=== PATIENT | female | born 1975 | race Two or more races ===

== ENCOUNTER → 2017-01-28 | Day surgery (SDC) | payer SELFPAY ==
--- NOTE | ~2017-01-28 | OR ---
Unit #: [id number] #: [id number] Patient: MANGO BRITO [id number] [facility] [address] [facility]. [place], [place] [address] [id number] MR#: [id number] NAME: MANGO BRITO ROOM: Date of Procedure: 01/28/2017 Admission Date: 01/28/2017 Surgeon: Chang Giron M.D. : 1975 Attending Physician: Chang Giron M.D. Primary Care Physician: Primary Care Physician No OPERATIVE REPORT PREOPERATIVE DIAGNOSIS A 4 cm lumbar lipoma causing localized pressure discomfort. POSTOPERATIVE DIAGNOSIS A 4 cm lumbar lipoma causing localized pressure discomfort. PROCEDURE PERFORMED Excisional biopsy 4.8 x 3.5 x 4 cm lipoma. ANESTHESIA General endotracheal anesthesia. ESTIMATED BLOOD LOSS 15 mL. 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 She complains of a palpable and painful mass in the left lumbar area. On examination, she has a palpable lumbar lipoma. She says it causes discomfort when pressure is applied especially if she has been sitting. She does not have any pain that radiates into the buttock or the leg. DESCRIPTION OF PROCEDURE The patient was admitted to [facility]. [facility], positively identified, and transported to the operating room, and after induction of general endotracheal anesthesia, she was placed in a lateral position and prepped and draped in usual sterile fashion. In preoperative hold, I had marked the lesion with the help of the patient. She received antibiotics per SCIP protocol. A transverse incision was made over the palpable mass. We dissected down and created superior and inferior skin flaps, dissected down and identified the lipomatous mass and dissected out of the soft tissue circumferentially using sharp and cautery dissection. Once it was freed up from the soft tissue attachments, I irrigated and obtained hemostasis. 30 mL of local anesthetic were infiltrated in the fascia and soft tissue. Deep tissue layers were reapproximated using 2-0 Vicryl suture. The skin was reapproximated with 2-0 nylon vertical mattress suture. Telfa and Tegaderm were placed as dressing. Sponges and needle counts were correct x3. The patient tolerated the procedure well and was transported to recovery in stable condition. Findings and postoperative instructions were discussed through the demolition hammer operator with the patient. Unit #: [id number] #: [id number] Patient: MANGO BRITO Dictated by... Bandar Segovia/joanna TD: 01/28/2017 13:15 JOB #: [id number] OPERATIVE REPORT Page 1 of 1 X Chang Giron MD PROCEDURE OPERATIVE NOTE
[2017-01-28 10:05] LABS: BASOPHIL# 0.1 X10e3 (0-0.3); EOSINOPHIL# 0.4 X10e3 (0-0.7); EOSINOPHIL% 6.3 % (0.0-7.0); HEMATOCRIT 38.8 % (35.0-45.0); HEMOGLOBIN 12.7 gm/dL (12.0-16.0); LYMPHOCYTE# 1.6 X10e3 (1.0-3.5); LYMPHOCYTE% 25.4 % (17.0-45.0); MEAN CELL VOLUME 82.2 FL (83-96); MEAN CORPUSCULAR HGB CONC 32.8 g/dL (30-36); MEAN PLATELET VOLUME 8.8 FL (6.5-11.5); MONOCYTE# 0.5 X10e3 (0-1.0); MONOCYTE% 7.8 % (3.0-12.0); NEUTROPHIL# 3.8 X10e3 (1.5-7.1); NEUTROPHIL% 59.5 % (40-75); PLATELET COUNT 252 X10e3 (140-420); RED BLOOD COUNT 4.72 X10e (3.90-5.30); RED CELL DISTRIBUTION WIDTH 14.5 % (11.0-15.5); WHITE BLOOD COUNT 6.4 X10e3 (4.0-10.5)
[2017-01-28 10:07] LABS: DIFF IND NO
[2017-01-28 10:49] LABS: CALCIUM SERUM 8.5 mg/dL (8.4-10.2); CREATININE SERUM 0.6 mg/dL (0.6-1.4); POTASSIUM 3.8 mmol/L (3.5-5.1)
== END | disposition home or self-care (01) ==
LOC: CSUR 08:41
PROVIDERS: Specialist
DX: M79.89 Other specified soft tissue disorders (principal); F17.200 Nicotine dependence, unspecified, uncomplicated
CPT/HCPCS: 80048; 84703; 85025; 88304; J0690; J1100; J2250; J2270; J2405; J3010